=== PATIENT | male | born 1935 | race Caucasian/White ===

== ENCOUNTER 2017-09-30 17:33 | Inpatient (IN) ==
[2017-09-30] MEDS ORDERED: IOPAMIDOL 100 ML BOTTLE IV ONE (17:34)
--- NOTE | 2017-09-30 17:50 | Emergency Department Note ---
Abdominal Pain HPI - General Chief Complaint: Abdominal Pain Stated Complaint: ABD pain Time Seen by Provider: 09/30/17 17:49 Source: patient Mode of arrival: wheelchair - History of Present Illness HPI Narrative: This patient started developing right upper quadrant abdominal pain this morning. He has slight nausea associated. He has a history of Crohn's disease but has done well since he has surgery for that. Diarrhea recently in fact might feel slightly constipated over the last couple of days. However he does not have pain in his pelvic region. - Related Data Home Medications Medication Instructions Recorded Confirmed No Known Home Meds [No Known Home 10/01/17 10/01/17 Meds] Allergies Allergy/AdvReac Type Severity Reaction Status Date / Time Sulfa (Sulfonamide AdvReac Mild Nausea Verified 10/01/17 06:32 Antibiotics) Review of Systems All systems ED: reviewed and negative except as stated. Abdominal Pain PMH - Past Medical History Medical history: Reports: other (Crohn's disease) - Social History Smoking status: Former smoker Physical Exam Limitations: no limitations General appearance: alert Head: atraumatic Eye: Present: normal appearance ENT: normal exam Neck: Present: normal inspection Chest: Present: normal inspection Respiratory: Present: normal lung sounds bilaterally Cardiovascular: Present: regular rate, normal rhythm, normal heart sounds Abdominal: Present: soft, tenderness. Absent: distention, guarding, rebound, rigidity Abdominal tenderness: Present: RUQ, mild Neurological: Present: alert Psychiatric: Present: normal affect, normal mood Skin: Present: warm, dry, intact Course Vital Signs Temperature 97.6 F 09/30/17 17:34 Pulse Rate 68 09/30/17 17:34 Respiratory Rate 16 09/30/17 17:34 Blood Pressure 128/81 09/30/17 17:34 Pulse Oximetry (%) 98 09/30/17 17:34 Temperature 99.6 F H 10/01/17 04:00 Pulse Rate 74 10/01/17 04:00 Respiratory Rate 16 10/01/17 04:00 Blood Pressure 138/76 10/01/17 04:00 Pulse Oximetry (%) 97 10/01/17 04:00 Abdominal Pain - [facility] Narrative Medical decision making narrative: CT scan shows a mechanical small bowel obstruction at the anastomosis from his previous surgery for Crohn's disease. He will be admitted to the hospital by the surgeon Dr. Conn. - Lab Data Lab results reviewed: Yes I reviewed the patient's lab results. Result diagrams: 10/01/17 04:38 10/01/17 04:38 Lab Results 09/30/17 09/30/17 09/30/17 Range/Units 18:18 18:18 18:56 WBC 17.3 H (4.5-11.0) K/mcL RBC 5.18 (4.50-5.90) M/mcL Hgb 14.5 (13.5-16.5) g/dL Hct 44.2 (41.0-55.0) % MCV 85.2 (80.0-100.0) fL MCH 27.9 (26.0-34.0) pg MCHC 32.7 (31.0-36.0) g/dL RDW 14.3 (11.5-14.5) % Plt Count 384 (140-440) K/mcL MPV 8.4 (7.4-10.4) fL Gran % 91.2 H (38.0-78.0) % Lymph % (Auto) 4.6 L (15.5-49.0) % [place] % (Auto) 3.9 (1.0-12.0) % Eos % (Auto) 0.3 (0.0-7.0) % Baso % (Auto) 0 (0.0-2.0) % Gran # 15.8 H (1.8-8.0) K/mcL Lymph # (Auto) 0.8 L (1.5-4.8) K/mcL [place] # (Auto) 0.7 (0.1-0.9) K/mcL Eos # (Auto) 0.1 (0.0-0.7) K/mcL Baso # (Auto) 0 (0.0-0.3) K/mcL Sodium 137 (133-145) mmol/L Potassium 4.3 (3.3-5.1) mmol/L Chloride 100 (96-108) mmol/L Carbon Dioxide 21 L (22-30) mmol/L Anion Gap 16.0 (8-16) BUN 31 H (8-23) mg/dl Creatinine 1.8 H (0.7-1.2) mg/dl GFR Calculation 34 Glucose 124 H (70-105) mg/dL Calcium 10.2 (8.6-10.4) mg/dl Total Bilirubin 0.6 (0.0-1.0) mg/dL AST 22 (0-37) U/l ALT 16 (0-40) U/l Alkaline Phosphatase 140 H (39-117) U/L Total Protein 7.9 (5.9-8.4) gm/dL Albumin 4.6 (3.2-5.2) gm/dL Globulin 3.3 (2.2-3.7) gm/dL Albumin/Globulin Ratio 1.4 (1.0-2.3) Lipase 33 (7-60) U/L Urine Color Yellow Urine Appearance Hazy Urine pH 5.0 (5.0-9.0) Ur Specific Picher 1.020 (1.000-1.035) Urine Protein 30 A (NEG) mg/dL Urine Glucose (UA) Negative (NEG) mg/dL Urine Ketones 5/tr A (NEG) mg/dL Urine Occult Blood Neg (<0.03) mg/dL Urine Nitrate Neg (NEG) Urine Bilirubin Neg (NEG) mg/dL Urine Urobilinogen Neg (NEG) mg/dL Ur Leukocyte Esterase 500 A (NEG) /uL Urine RBC 6 H (0-1) /hpf Urine WBC > 182 H (0-4) /hpf Ur Squamous Epith Cells 0 (0-4) /hpf Urine Bacteria Few A (0) /hpf Urine Mucus Few (0) /hpf Ur Culture Indicated? Yes - Radiology Data Radiology results reviewed: Yes I reviewed the patient's radiology results. Disposition Pt seen by [facility] only: No Clinical Impression: Small bowel obstruction Disposition: Xfer As Inpt ([facility]) Condition: Undetermined
[2017-09-30] MEDS ORDERED: ONDANSETRON 4 MG/2 ML VIAL IV ONE (18:08)
[2017-09-30] MEDS ORDERED: LACTATED RINGERS 1,000 ML IV ONE ×2 (18:08→22:01)
[2017-09-30 18:47] LABS: Basophils # (Auto) 0 K/mcL (0.0-0.3); Basophils % (Auto) 0 % (0.0-2.0); Eosinophils # (Auto) 0.1 K/mcL (0.0-0.7); Eosinophils % (Auto) 0.3 % (0.0-7.0); Granulocytes % (Auto) 91.2 % (38.0-78.0); Lymphocytes # (Auto) 0.8 K/mcL (1.5-4.8); Lymphocytes % (Auto) 4.6 % (15.5-49.0); Mean Cell Volume 85.2 fL (80.0-100.0); Mean Corpuscular HGB Conc 32.7 g/dL (31.0-36.0); Mean Corpuscular Hemoglobin 27.9 pg (26.0-34.0); Monocytes # (Auto) 0.7 K/mcL (0.1-0.9); Monocytes % (Auto) 3.9 % (1.0-12.0); Platelet Count 384 K/mcL (140-440); RBC 5.18 M/mcL (4.50-5.90); Red Cell Distribution Width 14.3 % (11.5-14.5)
[2017-09-30 19:05] LABS: ALT/SGPT 16 U/l (0-40); Albumin 4.6 gm/dL (3.2-5.2); Albumin/Globulin Ratio 1.4 (1.0-2.3); Alkaline Phosphatase 140 U/L (39-117); Blood Urea Nitrogen 31 mg/dl (8-23); Lipase 33 U/L (7-60)
--- NOTE | 2017-09-30 19:40 | Ultrasound Report ---
CLINICAL INFORMATION: History of Crohn's disease. Abdominal pain. TECHNIQUE: Grayscale and color flow Doppler spectral imaging COMPARISON: None. FINDINGS: There are mobile gallstones. No gallbladder wall thickening. No pericholecystic fluid. There is an echogenic abnormality without acoustic shadowing consistent with a 6 mm gallbladder wall polyp. This is considered benign. No positive Braxton sign Common bile duct measures 5 mm. No intra or extrahepatic bile duct dilatation Liver is negative. No focal intrahepatic abnormality. Normal spleen and liver contour. No evidence for cirrhosis. No ascites. Visualized portions of the pancreas are negative. Normal hepatopedal portal venous flow. Small bowel throughout the abdomen is prominent with active peristalsis. Findings may indicate enteritis. Plain film examination may be helpful to evaluate for bowel obstruction if clinically indicated. IMPRESSION: 1. Cholelithiasis. No findings of cholecystitis 2. Negative pancreas and liver 3. Prominent fluid-filled small bowel with active peristalsis. Enteritis is possible Interpreted and Authenticated by: Josh Lora 09/30/17
[2017-09-30 19:44] LABS: Appearance,Urine HAZY; Bacteria,Urine FEW /hpf (0); Bilirubin,Urine NEG (NEG); Color,Urine YELLOW; Glucose,Urine (UA) NEGATIVE (NEG); Leukocyte Esterase,Urine 500 /uL (NEG); Mucus,Urine FEW /hpf (0); Protein,Urine 30 mg/dL (NEG); Urine Blood NEG mg/dL (<0.03); Urine RBC 6 /hpf (0-1); Urine Squamous Epithelial Cell 0 /hpf (0-4); Urine WBC > 182 /hpf (0-4); Urobilinogen,Urine NEG (NEG)
[2017-09-30] MEDS ORDERED: LEVOFLOXACIN 750 MG/150 ML BAG IV ONE (19:47)
--- NOTE | 2017-09-30 22:08 | Cat Scan Report ---
CLINICAL INFORMATION: History of Crohn's disease. Abdominal pain. COMPARISON: Ultrasound dated 09/30/2017 TECHNIQUE: Axial images were obtained through the abdomen and pelvis. Sagittally and coronally reformatted images. 70 mL contrast material injected intravenously. Oral contrast material was administered FINDINGS: Stomach is dilated and contrast-filled. The small bowel is also dilated. Small bowel measures approximately 3.5 cm in maximum cross-sectional diameter. There is an anastomotic suture line in the terminal ileum. There is obstruction with a transition point at this level. No focal soft tissue mass. No detectable fistula. No abscess. No pneumoperitoneum. No biliary or portal venous gas. There is circumferential bowel wall thickening at the level of obstruction. No other focal abnormalities. Colon contains fecal material. No colonic mass. No diverticulitis. No appendicitis. Lung bases are negative. No pleural fluid. No pericardial fluid. Liver is negative. No focal intrahepatic abnormalities. The liver contour is smooth. No cirrhosis. Gallbladder is present. There are calcified gallstones. No gallbladder wall thickening or pericholecystic fluid. No dilated bile ducts. Spleen is negative. No splenomegaly. Pancreas is negative. No pancreatic mass. There is a 2.2 cm right renal cyst. No solid mass. No hydronephrosis. Left kidney is markedly atrophic. Negative adrenal glands. No retroperitoneal lymphadenopathy. No free intraperitoneal fluid. No intra-abdominal abscess. No pneumoperitoneum. No biliary or portal venous gas. No pneumatosis. Lumbar spine, sacrum, pelvis are negative. IMPRESSION: 1. Previous small bowel resection with anastomosis in the right lower quadrant at the terminal ileum 2. Mechanical small bowel obstruction at the anastomosis. There is localized bowel wall thickening. No abscess. No detectable mass 3. Left renal atrophy 4. Cholelithiasis The exam was performed using radiation dose optimization techniques including, but not limited to, automated exposure control, adjustment of the mA and/or kV according to patient size and use of iterative reconstruction technique. Interpreted and Authenticated by: Josh Lora 09/30/17
[2017-09-30] MEDS ORDERED: metroNIDAZOLE 500 MG/100 ML BAG IV ONE (22:21)
[2017-10-01] MEDS: 0.9 % SODIUM CHLORIDE 1,000 ML IV SCH ×2 (00:15→10:12)
[2017-10-01] MEDS: ONDANSETRON 4 MG/2 ML VIAL IV PRN ×3 (00:27→10:27)
[2017-10-01] MEDS: metroNIDAZOLE 500 MG/100 ML BAG IV SCH ×3 (05:45→18:37)
[2017-10-01 06:33] LABS: Basophils # (Auto) 0.1 K/mcL (0.0-0.3); Basophils % (Auto) 0.7 % (0.0-2.0); Eosinophils # (Auto) 0.1 K/mcL (0.0-0.7); Granulocytes % (Auto) 83.2 % (38.0-78.0); Lymphocytes # (Auto) 0.8 K/mcL (1.5-4.8); Lymphocytes % (Auto) 8.2 % (15.5-49.0); Mean Cell Volume 86.1 fL (80.0-100.0); Mean Corpuscular HGB Conc 32.7 g/dL (31.0-36.0); Mean Corpuscular Hemoglobin 28.2 pg (26.0-34.0); Monocytes # (Auto) 0.7 K/mcL (0.1-0.9); Monocytes % (Auto) 6.9 % (1.0-12.0); Platelet Count 341 K/mcL (140-440); RBC 4.24 M/mcL (4.50-5.90)
[2017-10-01] MEDS ORDERED: ACETAMINOPHEN 500 MG/50 ML BOTTLE IV PRN (06:33)
[2017-10-01 07:00] LABS: ALT/SGPT 14 U/l (0-40); Albumin 3.7 gm/dL (3.2-5.2); Albumin/Globulin Ratio 1.6 (1.0-2.3); Alkaline Phosphatase 102 U/L (39-117); Bilirubin,Direct < 0.2 mg/dL (0.0-0.3); Blood Urea Nitrogen 25 mg/dl (8-23); Gamma Glutamyl Transpeptidase 85 U/L (8-61)
--- NOTE | 2017-10-01 07:56 | XRay Report ---
CLINICAL INFORMATION: History of Crohn's disease and possible mechanical small bowel obstruction TECHNIQUE: Supine and upright abdomen COMPARISON: Abdominal ultrasound dated 09/30/[address] scan dated 09/30/2017 FINDINGS: Multiple surgical sutures in the right side of the abdomen. Patient has undergone previous partial small bowel resection. There is gas and fecal material within the colon. There is small bowel gas with air-fluid levels. Small bowel is prominent but not significantly distended. These findings may be chronic in this patient with history of Crohn's disease and previous surgery. Continued follow-up recommended. Comparison with any prior examinations would be helpful. No pneumoperitoneum. No biliary or portal venous gas. No pneumatosis. IMPRESSION: 1. Fecal material within the colon 2. Small bowel gas with air-fluid levels. Findings may be due to partial mechanical small bowel obstruction. Findings may be chronic. Continued follow-up recommended. Interpreted and Authenticated by: Josh Lora 10/01/17
[2017-10-01] MEDS ORDERED: ACETAMINOPHEN 650 MG/65 ML BOTTLE IV PRN (07:58)
--- NOTE | 2017-10-01 08:01 | General Surg History&Physical ---
History of Present Illness Patient information: Note initiated : 10/01/17 at 8:00 am Service Date, if different from initiated Date: [] Patient: Romero Romo 81 y/o M admitted on 09/30/17 for ABD pain. Chief Complaint: [] HPI: Mr. Romo is a 81 year old M was admitted with small bowel obstruction. The patient gives a history of increasing abdominal pain with nausea and vomiting over the past day. He has not had a bowel movement for over 48 hours and he states that he should not pass flatus. He was seen in the emergency room were CT scan suggested distal small bowel obstruction at the ileal colic anastomosis. He is status post terminal ileectomy for Crohn's disease in 2001. He has not taken any medication for Crohn's disease since that surgery. He states that he continues to feel nausea but no vomiting. He has a long history of constipation and uses rectal suppositories as needed to stimulate bowel movement. Review of Systems - Constitutional malaise, weight loss - EENT Nose, mouth and throat: no hoarseness, no vertigo - Cardiovascular no chest pain at rest, no dyspnea on exertion, no palpatations, no syncope - Respiratory dyspnea, no dyspnea on exertion, no wheezing, no snoring - Gastrointestinal abdominal pain, bloating, change in bowel habits, change in stool character, constipation, heartburn, nausea, vomiting - Genitourinary change in urinary stream, difficulty urinating - Musculoskeletal arthralgias, no joint swelling, no stiffness - Integumentary no new lesions, no pruritus, no rash - Neurological no abnormal hearing, no behavioral changes, no headache(s), no syncope, no weakness - Psychiatric no anxiety, no depression - Endocrine no fatigue, no palpitations, no polydipsia, no polyphagia, no polyuria - Hematologic/Lymphatic no easy bleeding, no easy bruising, no lymphadenopathy - Allergic/Immunologic no tongue swelling, no throat swelling, no wheezing, no lip swelling Past History Past medical history: History of prostate cancer Chronic bladder atony Chronic renal failure Past surgical history: Partial right colectomy with terminal ileal resection Cataract surgery Prostatectomy Medications and Allergies Home Medications Medication Instructions Recorded Confirmed Type No Known Home Meds [No Known Home 10/01/17 10/01/17 History Meds] Allergies Allergy/AdvReac Type Severity Reaction Status Date / Time Sulfa (Sulfonamide AdvReac Mild Nausea Verified 10/01/17 06:32 Antibiotics) Exam Temp Pulse Resp BP Pulse Ox 98.2 F 74 18 148/79 96 10/01/17 07:29 10/01/17 04:00 10/01/17 07:29 10/01/17 07:29 10/01/17 07:29 - General physical appearance moderate distress, moderate pain, other (very thin male) - Eyes PERRL, normal ocular movement - ENT normal pinna, normal nares, normal mucosa, no hearing loss, no congestion - Head Head exam IM: Present: atraumatic, normal inspection, normocephalic - Neck no masses, no bruits, trachea midline, no lymphadectomy, no venous distension - Cardiovascular Cardiovascular exam IM: Present: normal rate and rhythm, RRR, +S1, +S2, systolic murmur. Absent: irregular rhythm, JVD, tachycardia Intensity IM: 05/01 - Respiratory normal expansion, normal respiratory effort, clear to percussion, clear to auscultation - Abdomen Abdomen: Present: soft, tender (minimal tenderness to palpation in left lower quadrant; good active bowel sounds; well-healed midline scar), bowel sounds Hernia: Present: none - Genitourinary Present: normal penis with no external lesions, other (indwelling El catheter ) - Integumentary Present: no rash, no growths, no abnormal pigmentation - Neurologic Present: normal coordination, normal sensation - Musculoskeletal Present: normal gait, normal posture - Psychiatric Present: oriented to time, oriented to person, oriented to place, speech is normal, memory intact Assessment and Plan (1) Small bowel obstruction Schedule small bowel follow-through with Gastrografin Added Reglan 10 mg IV every 6 Status: Acute (2) Constipation by delayed colonic transit Soapsuds enema Add MiraLAX after patient starts to have bowel movements Status: Acute (3) Urinary tract infection associated with catheterization of urinary tract Send urine for culture and sensitivity Indwelling urinary catheter Cover with Levaquin IV Status: Acute (4) Dehydration, mild IV fluids as needed Status: Acute
[2017-10-01] MEDS: LEVOFLOXACIN 500 MG/100 ML BAG IV SCH (09:55)
[2017-10-01] MEDS: METOCLOPRAMIDE 10 MG/2 ML VIAL IV SCH ×2 (10:35→17:38)
[2017-10-01] MEDS: ACETAMINOPHEN 650 MG/65 ML BOTTLE IV SCH (17:35)
[2017-10-02] MEDS: METOCLOPRAMIDE 10 MG/2 ML VIAL IV SCH ×3 (00:21→12:27)
[2017-10-02] MEDS: metroNIDAZOLE 500 MG/100 ML BAG IV SCH ×3 (00:21→12:27)
[2017-10-02] MEDS: ACETAMINOPHEN 650 MG/65 ML BOTTLE IV SCH ×2 (00:22→05:20)
[2017-10-02] MEDS: 0.9 % SODIUM CHLORIDE 1,000 ML IV SCH ×3 (04:19→15:00)
[2017-10-02] MEDS ORDERED: DIATRIZOATE MEGLU/DIATRIZO SOD 30 ML BOTTLE PO ONE (07:16)
--- NOTE | 2017-10-02 08:19 | XRay Report ---
ORIGINAL REPORT CLINICAL INFORMATION: Small bowel obstruction TECHNIQUE: 4 bottles of water soluble contrast material were ingested. Serial imaging 0221 hours postingestion. COMPARISON: CT scan dated 09/30/2017. Plain film examination dated 10/01/2017 FINDINGS: Delayed passage of contrast material through the small bowel. Small bowel is distended. By 21 hours postingestion there is contrast material throughout the colon including the rectum. Appearance is consistent with delayed transit time but not with complete mechanical small bowel obstruction. No transition zone demonstrated. No focal area of small bowel narrowing IMPRESSION: 1. Delayed small bowel transit time 2. Contrast material throughout the colon by 21 hours postingestion ADDENDUM #1 Addendum: Above dictation described contrast material throughout the small bowel by 21 hours postingestion. Examination was actually obtained at 2100. This was approximately 12 hours postingestion. Contrast material is present throughout the colon consistent with delayed small bowel transit time but not consistent with high-grade mechanical small bowel obstruction Interpreted and Authenticated by: Josh Lora 10/02/17
--- NOTE | 2017-10-02 08:43 | XRay Report ---
CLINICAL INFORMATION: Crohn's disease. Small bowel obstruction. TECHNIQUE: Supine and upright abdomen COMPARISON: Previous small bowel study dated 10/01/2017 FINDINGS: Supine and upright abdomen obtained approximately 24 hours after contrast ingestion. Virtually all of the oral contrast material is within the colon. No remaining gastric or small bowel contrast material. Bowel gas pattern is more normal than on prior examinations with decreased gaseous distention of small bowel. Bowel gas pattern is presently unremarkable. Findings are consistent with significant improvement. No pneumoperitoneum. No biliary or portal venous gas. IMPRESSION: 1. Appearance consistent with resolution of mechanical small bowel obstruction. 2. Contrast material is within the colon without residual gastric or small bowel contrast. Interpreted and Authenticated by: Josh Lora 10/02/17
[2017-10-02] MEDS ORDERED: POLYETHYLENE GLYCOL 3350 17 GM PACKET PO SCH (09:00)
[2017-10-02] MEDS: LEVOFLOXACIN 500 MG/100 ML BAG IV SCH (09:54)
--- NOTE | 2017-10-02 13:50 | General Surgery Progress Note ---
Subjective Patient reports: feels better ( that), pain is less, flatus, bowel movement, afebrile Narrative: Note initiated : 10/02/17 at 1:48 pm Service Date, if different from initiated Date: [] Patient: Romero Romo 81 y/o M admitted on 09/30/17 for ABD Pain/Small Bowel Obstruction. Chief Complaint: [Patient feels much better. He had bowel movements last night and has had multiple bowel movements today. His morning x-rays showed significant clearing of contrast from the small bowel with residual contrast in his colon. He does not have abdominal pain. Earlier today he was given MiraLAX and he has had 2 bowel movements since then.. He will have follow-up abdominal x-rays later today.] Objective Temp Pulse Resp BP Pulse Ox 98.6 F 59 L 16 152/65 97 10/02/17 12:00 10/02/17 12:00 10/02/17 12:00 10/02/17 12:00 10/02/17 12:00 - Additional Data Intake & Output - Last 24 hours: Intake & Output 09/30/17 10/01/17 10/02/17 10/03/17 05:59 05:59 05:59 05:59 Intake Total 2215 / 2215 1730 / 1730 600 / 600 Output Total 875 / 875 2150 / 2150 Balance 1340 / 1340 -420 / -420 600 / 600 Weight 119 lb 114 lb 8 oz - General physical appearance well developed, well nourished, no distress - Eyes PERRL, normal ocular movement - ENT normal pinna, normal nares, normal mucosa, no hearing loss, no congestion - Neck no masses, no bruits, trachea midline, no lymphadectomy, no venous distension - Respiratory normal expansion, normal respiratory effort, clear to percussion, clear to auscultation - Cardiovascular Cardiovascular exam: Present: normal rate and rhythm, RRR, +S1, systolic murmur. Absent: JVD, tachycardia - Abdomen soft, non tender, bowel sounds (abdomen is soft and pliable; he has good active bowel sounds. There is no tenderness and no distention) - Integumentary no rash, no growths, no abnormal pigmentation - Neurologic normal coordination, normal sensation - Musculoskeletal normal gait, normal posture - Psychiatric oriented to time, oriented to person, oriented to place, speech is normal, memory intact - Labs 10/01/17 04:38 10/01/17 04:38 Assessment and Plan (1) Small bowel obstruction Status: Acute Assessment and plan: Patient has been started on clear liquids abdominal x-rays will be done later today. Diet will be advanced if his x-rays are improved Potential for discharge in the identifier horse Current Visit: Yes (2) Constipation by delayed colonic transit Status: Acute Assessment and plan: Significantly improved Current Visit: Yes (3) Urinary tract infection associated with catheterization of urinary tract Status: Acute Current Visit: Yes (4) Dehydration, mild Status: Acute Current Visit: Yes - Time Spent With Patient Total time spent is greater than 50% in coordination of care (as documented) at patient's floor/unit and/or counseling patient:
--- NOTE | 2017-10-02 16:37 | XRay Report ---
CLINICAL INFORMATION: Crohn's disease. History of small bowel obstruction TECHNIQUE: Supine and upright abdomen COMPARISON: Previous plain film examinations dated 10/01/2017 and 10/02/2017 FINDINGS: Oral contrast material was administered on 10/01/2017. Contrast material is all in the colon and mostly in the distal colon. Bowel gas pattern is significantly improved consistent with resolving or resolved mechanical small bowel obstruction. No pneumoperitoneum. No biliary or portal venous gas. No pneumatosis. IMPRESSION: 1. Findings consistent with resolving mechanical small bowel obstruction. 2. Oral contrast material is almost entirely in the colon Interpreted and Authenticated by: Josh Lora 10/02/17
--- NOTE | 2017-10-02 17:55 | Discharge Summary ---
Providers - Providers Patient information: Note initiated : 10/02/17 at 5:51 pm Service Date, if different from initiated Date: [] Patient: Romero Romo 81 y/o M admitted on 09/30/17 for ABD Pain/Small Bowel Obstruction. Chief Complaint: [] Date of admission: 09/30/17 Discharge date: 10/02/17 Attending physician: Nelson Conn Hospitalization Hospital course: 81-year-old male admitted through the emergency room for partial distal small bowel obstruction. The patient has a history of Crohn's disease and is status post partial cecal resection and terminal ileectomy many years ago. He has been having some problems with constipation. He presented with crampy abdominal pain with nausea and vomiting. Evaluation in the emergency room reveal a distal small bowel obstruction with dilated small bowel loops, air- fluid levels. He also had significant constipation. We tried milk and molasses enemas without results. He then had a small bowel follow-through done which initially held up and the terminal ileum but eventually decompressed and he had multiple bowel movements. He was given MiraLAX 8 ounces 2 and he had 4 more bowel movements. At the present time is small bowel was decompressed and he is asymptomatic. Patient is stable and will be allowed to be discharged home. He is advised to use MiraLAX at least twice a day. Patient also has problems with bladder outlet obstruction. He does self catheterization. His initial urine showed gram-negative bacillus and he was treated with Levaquin. His white count has returned to normal. He will be discharged on Levaquin 7 days. Discharge diagnosis: partial small bowel obstruction Secondary discharge diagnosis: Urinary tract infection due to Klebsiella pneumonia Reason for admission: abdominal pain nausea and vomiting Procedures: None Pertinent studies/significant findings: Small bowel follow-through Complications: None Exam Temp Pulse Resp BP Pulse Ox 98.1 F 54 L 16 163/72 99 10/02/17 16:00 10/02/17 16:00 10/02/17 16:00 10/02/17 16:00 10/02/17 16:00 - General physical appearance well developed, well nourished, no distress - Eyes PERRL, normal ocular movement - ENT normal pinna, normal nares, normal mucosa, no hearing loss, no congestion - Head Head exam IM: Present: atraumatic, normocephalic - Neck no masses, no bruits, trachea midline, no lymphadectomy, no venous distension - Cardiovascular Cardiovascular exam IM: Present: normal rate and rhythm, RRR, +S1, +S2. Absent : JVD, tachycardia - Respiratory normal expansion, normal respiratory effort, clear to percussion, clear to auscultation - Abdomen Abdomen: Present: soft, non tender, bowel sounds Hernia: Present: none - Genitourinary Present: normal penis with no external lesions - Integumentary Present: no rash, no growths, no abnormal pigmentation - Neurologic Present: normal coordination, normal sensation - Musculoskeletal Present: normal gait, normal posture - Psychiatric Present: oriented to time, oriented to person, oriented to place, speech is normal, memory intact Discharge Plan - Patient/Caregiver Discharge Instructions Activity: increase activity as tolerated Diet: Full Liquid (E) Additional Instructions: MiraLAX 1 capful in 8 ounces of liquid twice daily as needed to prevent constipation Prescriptions: Ciprofloxacin [Cipro] 500 mg PO BID #14 tablet - Follow up Plan Disposition: Home, Self-Care Prognosis: Good Rehab Potential: Good I certify that the patient requires SNF services.: No (rrrrrregards accident:) Overall status at discharge: patient is back to baseline Pending Studies Resuscitation Status Full Code Diet NPO Diet (NOW) Start Sun Sep 30 Breakfast Levofloxacin (Levaquin) 500 mg in 100 mls @ 100 mls/hr IV Q24H [facility] Last Infusion: 10/02/17 10:55 Dose: 100 mls/hr Admin: 10/02/17 09:54 Dose: 100 mls/hr Infusion: 10/01/17 10:55 Dose: 100 mls/hr Admin: 10/01/17 09:55 Dose: 100 mls/hr Metronidazole (Flagyl) 500 mg in 100 mls @ 100 mls/hr IV Q6H [facility] Last Infusion: 10/02/17 13:27 Dose: 100 mls/hr Admin: 10/02/17 12:27 Dose: 100 mls/hr Infusion: 10/02/17 06:17 Dose: 100 mls/hr Admin: 10/02/17 05:17 Dose: 100 mls/hr Infusion: 10/02/17 01:21 Dose: 100 mls/hr Admin: 10/02/17 00:21 Dose: 100 mls/hr Infusion: 10/01/17 19:37 Dose: 100 mls/hr Admin: 10/01/17 18:37 Dose: 100 mls/hr Infusion: 10/01/17 13:10 Dose: 100 mls/hr Admin: 10/01/17 12:10 Dose: 100 mls/hr Infusion: 10/01/17 06:45 Dose: 100 mls/hr Admin: 10/01/17 05:45 Dose: 100 mls/hr Sodium Chloride (Sodium Chloride 0.9%) 1,000 mls @ 100 mls/hr IV .Q10H [facility] Last Admin: 10/02/17 15:00 Dose: Not Given Infusion: 10/02/17 14:19 Dose: 100 mls/hr Admin: 10/02/17 04:57 Dose: Admin: 10/02/17 04:19 Dose: 100 mls/hr Infusion: 10/01/17 10:15 Dose: 100 mls/hr Admin: 10/01/17 10:12 Dose: Not Given Admin: 10/01/17 00:15 Dose: 100 mls/hr Metoclopramide HCl (Reglan) 10 mg IV Q6 [facility] Last Admin: 10/02/17 12:27 Dose: 10 mg Admin: 10/02/17 05:17 Dose: 10 mg Admin: 10/02/17 00:21 Dose: 10 mg Admin: 10/01/17 17:38 Dose: 10 mg Admin: 10/01/17 10:35 Dose: 10 mg Morphine Sulfate (Morphine) 4 mg IV Q2HP PRN PRN Reason: PAIN LEVEL > 6 Last Admin: 10/01/17 22:40 Dose: 4 mg Admin: 10/01/17 00:27 Dose: 4 mg Ondansetron HCl (Zofran) 4 mg IV Q4HP PRN PRN Reason: Nausea And Vomiting Last Admin: 10/01/17 10:27 Dose: 4 mg Admin: 10/01/17 06:51 Dose: 4 mg Admin: 10/01/17 00:27 Dose: 4 mg Polyethylene Glycol (Miralax) 17 gm PO DAILY [facility] Last Admin: 10/02/17 09:54 Dose: 17 gm Shift Summary 10/02/17 16:12 Shift Summary by Dari Patel Addendum entered by Dari Patel R.N. 10/02/17 16:13: Has FC in place, patient self cath every 4 hours prior to this admission. FC will stay in place, per Dr. Conn, until patient is discharged. He has not been medicated for pain this shift, no N/V. He is on clear diet and tolerating well. Had multiple bm's this shift. Possible DC later today or tomorrow in the morning. He has NS @ 100 running to right upper arm. Original Note: Pt is A&O, up with SBA of 1. Christie FC n Initialized on 10/02/17 16:12 - END OF NOTE
== END 2017-10-02 19:00 | disposition home or self-care (01) | DRG 389 ==
LOC: ED 17:33 → MEDSUR 23:01
PROVIDERS: ADMIT Family Medicine Adult Medicine; ATTEND Family Medicine Adult Medicine